=== PATIENT | male | born 1980 | race Caucasian/White ===

== ENCOUNTER 2016-11-10 23:59 | Emergency (ER) | payer OTHER | END 2016-11-11 03:00 | disposition home or self-care (01) | LOC: ER1 23:59 | DX: L03.312 Cellulitis of back [any part except buttock and flank] (principal); F17.200 Nicotine dependence, unspecified, uncomplicated | CPT/HCPCS: 99282 ==

== ENCOUNTER 2016-11-12 06:00 | Emergency (ER) | payer OTHER | END 2016-11-12 08:00 | disposition home or self-care (01) | LOC: ER1 06:00 | DX: L03.113 Cellulitis of right upper limb (principal); F17.200 Nicotine dependence, unspecified, uncomplicated | CPT/HCPCS: 99282 ==

== ENCOUNTER 2016-11-14 10:58 | Emergency (ER) | payer OTHER ==
[2016-11-14 12:03] LABS: HEMOGLOBIN 16.6 gm/dl (14.0-17.5); RED BLOOD COUNT 5.23 M/UL (4.20-5.50); WHITE BLOOD COUNT 9.9 K/UL (4.5-11.0)
[2016-11-14 12:18] LABS: BUN/CREATININE RATIO 13 (0-10)
== END 2016-11-14 17:30 | disposition home or self-care (01) ==
LOC: ER1 10:58
PROVIDERS: Student in an Organized Health Care Education/Training Program
DX: R00.2 Palpitations (principal)
CPT/HCPCS: 36415; 71010; 80053; 82550; 82553; 83874; 84484; 85025; 85379; 96360; 99285; J7050; Q9963

== ENCOUNTER 2016-12-02 02:11 | Emergency (ER) | payer OTHER | END 2016-12-02 03:59 | disposition home or self-care (01) | LOC: ER1 02:11 | DX: Z53.21 Procedure and treatment not carried out due to patient leaving prior to being seen by health care provider (principal) | CPT/HCPCS: 99284 ==

== ENCOUNTER 2016-12-04 19:01 | Emergency (ER) | payer OTHER ==
[2016-12-04 20:48] LABS: HEMOGLOBIN 16.1 gm/dl (14.0-17.5); RED BLOOD COUNT 5.08 M/UL (4.20-5.50); WHITE BLOOD COUNT 8.4 K/UL (4.5-11.0)
[2016-12-04 21:43] LABS: BUN/CREATININE RATIO 8 (0-10)
== END 2016-12-04 23:58 | disposition home or self-care (01) ==
LOC: ER1 19:01
PROVIDERS: Physician Assistant
DX: R00.2 Palpitations (principal); J98.9 Respiratory disorder, unspecified; F17.210 Nicotine dependence, cigarettes, uncomplicated
CPT/HCPCS: 36415; 71010; 80053; 80307; 81001; 82550; 82553; 83874; 84443; 84484; 85025; 87086; 93005; 96360; 99285; J7030

== ENCOUNTER → 2016-12-16 | Outpatient (CLI) | payer OTHER | LOC: HEART 5 10:59 | DX: R00.2 Palpitations (principal) ==

== ENCOUNTER 2017-01-05 11:35 | Emergency (ER) | payer OTHER | END 2017-01-05 17:05 | disposition home or self-care (01) | LOC: ER1 11:35 | DX: R51 Headache (principal); M54.2 Cervicalgia; R68.84 Jaw pain; F17.210 Nicotine dependence, cigarettes, uncomplicated; F41.9 Anxiety disorder, unspecified; F32.9 Major depressive disorder, single episode, unspecified; Z90.49 Acquired absence of other specified parts of digestive tract | CPT/HCPCS: 70450; 72125; 99284 ==

== ENCOUNTER 2017-01-09 02:58 | Emergency (ER) | payer OTHER ==
[2017-01-09 03:31] LABS: HEMOGLOBIN 15.4 gm/dl (14.0-17.5); RED BLOOD COUNT 4.96 M/UL (4.20-5.50); WHITE BLOOD COUNT 9.3 K/UL (4.5-11.0)
[2017-01-09 03:50] LABS: BUN/CREATININE RATIO 13 (0-10)
== END 2017-01-09 04:58 | disposition home or self-care (01) ==
LOC: ER1 02:58
PROVIDERS: Specialist/Technologist Athletic Trainer
DX: R00.2 Palpitations (principal); R07.89 Other chest pain; F17.200 Nicotine dependence, unspecified, uncomplicated
CPT/HCPCS: 36415; 71020; 80053; 82550; 82553; 83874; 84439; 84443; 84484; 85025; 93005; 99285

== ENCOUNTER 2017-01-10 20:02 | Emergency (ER) | payer OTHER ==
[2017-01-10 22:16] LABS: HEMOGLOBIN 15.9 gm/dl (14.0-17.5); RED BLOOD COUNT 5.22 M/UL (4.20-5.50); WHITE BLOOD COUNT 11.5 K/UL (4.5-11.0)
[2017-01-10 22:35] LABS: BUN/CREATININE RATIO 9 (0-10)
== END 2017-01-11 01:30 | disposition home or self-care (01) ==
LOC: ER1 20:02
PROVIDERS: Family Medicine
DX: R07.89 Other chest pain (principal); F17.210 Nicotine dependence, cigarettes, uncomplicated; Z79.899 Other long term (current) drug therapy
CPT/HCPCS: 36415; 71010; 80053; 82550; 82553; 83874; 84484; 85025; 93005; 99285

== ENCOUNTER 2017-01-16 03:03 | Emergency (ER) | payer OTHER | END 2017-01-16 04:03 | disposition home or self-care (01) | LOC: ER1 03:03 | DX: M54.9 Dorsalgia, unspecified (principal); L84 Corns and callosities | CPT/HCPCS: 99283 ==

== ENCOUNTER → 2017-01-19 | Outpatient (CLI) | payer OTHER | LOC: KOH-I 10:04 | DX: R10.9 Unspecified abdominal pain (principal); Z53.9 Procedure and treatment not carried out, unspecified reason ==

== ENCOUNTER → 2017-01-25 | Outpatient (CLI) | payer OTHER | LOC: KOH-I 09:34 | DX: R10.0 Acute abdomen (principal); K76.0 Fatty (change of) liver, not elsewhere classified | CPT/HCPCS: 76705 ==

== ENCOUNTER 2017-02-08 02:20 | Emergency (ER) | payer OTHER ==
[2017-02-08 03:01] LABS: HEMOGLOBIN 15.8 gm/dl (14.0-17.5); RED BLOOD COUNT 5.07 M/UL (4.20-5.50); WHITE BLOOD COUNT 9.7 K/UL (4.5-11.0)
[2017-02-08 03:22] LABS: BUN/CREATININE RATIO 11 (0-10)
== END 2017-02-08 06:38 | disposition home or self-care (01) ==
LOC: ER1 02:20
PROVIDERS: Family Medicine
DX: R07.89 Other chest pain (principal); F17.200 Nicotine dependence, unspecified, uncomplicated; Z88.8 Allergy status to other drugs, medicaments and biological substances
CPT/HCPCS: 36415; 71010; 80053; 82550; 82553; 83874; 84484; 85025; 93005; 99285

== ENCOUNTER 2020-12-21 04:07 | Emergency (ER) | payer OTHER ==
[~2020-12-21 04:07] MED LIST: VISTARIL25 MG PO
[2020-12-21 04:48] LABS: HEMOGLOBIN 15.4 gm/dl (14.0-17.5); RED BLOOD COUNT 4.83 M/UL (4.20-5.50); WHITE BLOOD COUNT 8.7 K/UL (4.5-11.0)
[2020-12-21 05:29] LABS: BUN/CREATININE RATIO 15 (0-10)
[2020-12-21] MEDS ORDERED: MIRALAX17 GM PO (07:30)
== END 2020-12-21 07:44 | disposition home or self-care (01) ==
LOC: ER1 04:07
PROVIDERS: Emergency Medicine
DX: K56.41 Fecal impaction (principal); M54.6 Pain in thoracic spine; G89.29 Other chronic pain; F17.200 Nicotine dependence, unspecified, uncomplicated
CPT/HCPCS: 72070; 80053; 81001; 85025; 99284; Q9967

== ENCOUNTER 2021-04-03 14:40 | Emergency (ER) | payer OTHER ==
[~2021-04-03 14:40] MED LIST changes: +MIRALAX17 GM PO
== END 2021-04-03 18:08 | disposition left against medical advice (07) ==
LOC: ER1 14:40
DX: Z53.21 Procedure and treatment not carried out due to patient leaving prior to being seen by health care provider (principal)

== ENCOUNTER 2021-04-19 10:06 | Emergency (ER) | payer OTHER ==
[2021-04-19] MEDS ORDERED: NORFLEX 100 MG100 MG PO (13:38)
[2021-04-19] MEDS ORDERED: PREDNISONE50 MG PO (13:38)
== END 2021-04-19 13:50 | disposition home or self-care (01) ==
LOC: ER1 10:06
DX: M54.2 Cervicalgia (principal); Z90.89 Acquired absence of other organs; F17.210 Nicotine dependence, cigarettes, uncomplicated
CPT/HCPCS: 72125; 96372; 99283; J1100; J1885

== ENCOUNTER 2021-06-19 10:45 | Emergency (ER) | payer OTHER ==
[~2021-06-19 10:45] MED LIST changes: +NORFLEX 100 MG100 MG PO; +PREDNISONE50 MG PO
[2021-06-19 12:31] LABS: RED BLOOD COUNT 5.07 M/UL (4.20-5.50); WHITE BLOOD COUNT 8.2 K/UL (4.5-11.0)
[2021-06-19 12:58] LABS: BUN/CREATININE RATIO 12 (0-10)
== END 2021-06-19 14:00 | disposition home or self-care (01) ==
LOC: ER1 10:45
PROVIDERS: Physician Assistant
DX: R42 Dizziness and giddiness (principal); R20.2 Paresthesia of skin; T43.215A Adverse effect of selective serotonin and norepinephrine reuptake inhibitors, initial encounter; Z20.822 Contact with and (suspected) exposure to COVID-19; I25.10 Atherosclerotic heart disease of native coronary artery without angina pectoris; F17.210 Nicotine dependence, cigarettes, uncomplicated; Z79.899 Other long term (current) drug therapy
CPT/HCPCS: 71045; 80053; 82550; 82553; 83874; 84484; 85025; 96372; 99284; J1885; U0002

== ENCOUNTER 2021-09-12 12:19 | Emergency (ER) | payer OTHER ==
[2021-09-12] MEDS ORDERED: BENZONATATE100 MG PO (14:03)
== END 2021-09-12 14:16 | disposition home or self-care (01) ==
LOC: ER1 12:19
DX: R05.9 Cough, unspecified (principal); R53.83 Other fatigue; Z20.822 Contact with and (suspected) exposure to COVID-19; F17.200 Nicotine dependence, unspecified, uncomplicated
CPT/HCPCS: 71045; 99284; U0002

== ENCOUNTER 2021-11-28 13:22 | Emergency (ER) | payer OTHER ==
[~2021-11-28 13:22] MED LIST changes: +BENZONATATE100 MG PO; +VISTARIL 50 MG50 MG PO
[2021-11-28] MEDS ORDERED: NAPROSYN500 MG PO (17:13)
[2021-11-28] MEDS ORDERED: CYCLOBENZAPRINE5 MG PO (17:13)
== END 2021-11-28 17:22 | disposition home or self-care (01) ==
LOC: ER1 13:22
DX: R42 Dizziness and giddiness (principal); M54.2 Cervicalgia; M54.6 Pain in thoracic spine; M25.511 Pain in right shoulder; F17.200 Nicotine dependence, unspecified, uncomplicated; Z79.899 Other long term (current) drug therapy
CPT/HCPCS: 72125; 72128; 73030; 96372; 99284; J1885

== ENCOUNTER 2021-11-29 09:26 | Emergency (ER) | payer OTHER ==
[~2021-11-29 09:26] MED LIST changes: +CYCLOBENZAPRINE5 MG PO; +NAPROSYN500 MG PO
[2021-11-29 10:58] LABS: HEMOGLOBIN 15.5 gm/dl (14.0-17.5); RED BLOOD COUNT 4.92 M/UL (4.20-5.50); WHITE BLOOD COUNT 8.7 K/UL (4.5-11.0)
[2021-11-29 11:13] LABS: BUN/CREATININE RATIO 19 (0-10)
== END 2021-11-29 12:43 | disposition home or self-care (01) ==
LOC: ER1 09:26
PROVIDERS: Physician Assistant
DX: F41.0 Panic disorder [episodic paroxysmal anxiety] (principal); R20.0 Anesthesia of skin; F17.200 Nicotine dependence, unspecified, uncomplicated
CPT/HCPCS: 70450; 80048; 85025; 93005; 99284

== ENCOUNTER 2021-12-01 06:34 | Emergency (ER) | payer OTHER ==
[2021-12-01 08:07] LABS: HEMOGLOBIN 15.3 gm/dl (14.0-17.5); RED BLOOD COUNT 5.03 M/UL (4.20-5.50); WHITE BLOOD COUNT 7.8 K/UL (4.5-11.0)
[2021-12-01 08:08] LABS: BUN/CREATININE RATIO 16 (0-10)
[2021-12-01] MEDS ORDERED: MEDROL DOSEPAK 24 MG PO (09:13)
== END 2021-12-01 09:32 | disposition home or self-care (01) ==
LOC: ER1 06:34
PROVIDERS: Physician Assistant Medical
DX: R06.02 Shortness of breath (principal); M54.2 Cervicalgia; G89.29 Other chronic pain; F17.210 Nicotine dependence, cigarettes, uncomplicated
CPT/HCPCS: 71045; 80053; 82550; 82553; 84484; 85025; 93005; 96374; 96375; 99284; J1885; J2930

== ENCOUNTER 2021-12-02 05:37 | Emergency (ER) | payer OTHER ==
[~2021-12-02 05:37] MED LIST changes: +MEDROL DOSEPAK 24 MG PO
[2021-12-02 06:19] LABS: HEMOGLOBIN 15.8 gm/dl (14.0-17.5); RED BLOOD COUNT 5.02 M/UL (4.20-5.50)
[2021-12-02 06:50] LABS: WHITE BLOOD COUNT 21.6 K/UL (4.5-11.0)
[2021-12-02 06:51] LABS: BUN/CREATININE RATIO 19 (0-10)
== END 2021-12-02 11:04 | disposition home or self-care (01) ==
LOC: ER1 05:37
PROVIDERS: Family Medicine
DX: F22 Delusional disorders (principal); M54.2 Cervicalgia; R07.9 Chest pain, unspecified
CPT/HCPCS: 71046; 80053; 80307; 82550; 82553; 84484; 85025; 85379; 93005; 96374; 99285; G0480; J2060

== ENCOUNTER 2021-12-06 09:15 | Emergency (ER) | payer OTHER ==
[2021-12-06 10:38] LABS: HEMOGLOBIN 16.3 gm/dl (14.0-17.5); RED BLOOD COUNT 5.13 M/UL (4.20-5.50); WHITE BLOOD COUNT 10.4 K/UL (4.5-11.0)
[2021-12-06 10:54] LABS: BUN/CREATININE RATIO 23 (0-10)
[2021-12-06] MEDS ORDERED: IBUPROFEN600 MG PO (11:36)
== END 2021-12-06 11:55 | disposition home or self-care (01) ==
LOC: ER1 09:15
PROVIDERS: Emergency Medicine
DX: M54.2 Cervicalgia (principal); I10 Essential (primary) hypertension; F17.200 Nicotine dependence, unspecified, uncomplicated
CPT/HCPCS: 80048; 85025; 85652; 86140; 96374; 99283; J2270

== ENCOUNTER → 2021-12-09 | Outpatient (CLI) | payer OTHER ==
[~2021-12-09] MED LIST changes: +IBUPROFEN600 MG PO
== END ==
LOC: EMI 08:48
DX: M54.2 Cervicalgia (principal)
CPT/HCPCS: 72141

== ENCOUNTER 2021-12-15 17:21 | Emergency (ER) | payer OTHER ==
[2021-12-15 20:05] LABS: HEMOGLOBIN 15.1 gm/dl (14.0-17.5); RED BLOOD COUNT 4.75 M/UL (4.20-5.50)
[2021-12-15 20:36] LABS: BUN/CREATININE RATIO 14 (0-10)
== END 2021-12-15 21:05 | disposition home or self-care (01) ==
LOC: ER1 17:21
PROVIDERS: Nurse Practitioner
DX: R53.1 Weakness (principal); F17.210 Nicotine dependence, cigarettes, uncomplicated; I10 Essential (primary) hypertension
CPT/HCPCS: 71045; 80053; 80307; 81001; 82550; 82553; 82962; 84439; 84443; 84484; 85025; 93005; 99285